=== PATIENT | male | born 1950 | race Two or more races ===

== ENCOUNTER 2017-02-23 16:13 | Outpatient (CLI) | payer BC, MEDICARE | END 2017-02-23 23:59 | disposition home or self-care (01) | LOC: RAD 16:13 | PROVIDERS: ATTEND Podiatrist Foot & Ankle Surgery | DX: M19.071 Primary osteoarthritis, right ankle and foot (principal); M79.89 Other specified soft tissue disorders; L97.519 Non-pressure chronic ulcer of other part of right foot with unspecified severity | CPT/HCPCS: 73630-TC ==

== ENCOUNTER 2017-02-27 08:55 | Outpatient (CLI) | payer BC, MEDICARE | END 2017-02-27 23:59 | disposition home or self-care (01) | LOC: WOU 08:55 | PROVIDERS: ATTEND Podiatrist Foot & Ankle Surgery | DX: L97.511 Non-pressure chronic ulcer of other part of right foot limited to breakdown of skin (principal); G62.9 Polyneuropathy, unspecified; M10.9 Gout, unspecified; M19.90 Unspecified osteoarthritis, unspecified site; Z83.3 Family history of diabetes mellitus; Z82.49 Family history of ischemic heart disease and other diseases of the circulatory system; I10 Essential (primary) hypertension | CPT/HCPCS: 11042; A6402 ×2; 11100 ==

== ENCOUNTER → 2017-03-06 | Outpatient (CLI) | payer BC, MEDICARE | LOC: WOU 08:45 | PROVIDERS: ATTEND Podiatrist Foot & Ankle Surgery | DX: L97.411 Non-pressure chronic ulcer of right heel and midfoot limited to breakdown of skin (principal); M20.41 Other hammer toe(s) (acquired), right foot; M19.90 Unspecified osteoarthritis, unspecified site; R60.0 Localized edema; L03.115 Cellulitis of right lower limb; M10.9 Gout, unspecified; Z79.899 Other long term (current) drug therapy; G62.9 Polyneuropathy, unspecified | CPT/HCPCS: 11042; A6402 ==

== ENCOUNTER 2017-03-13 13:23 | Outpatient (CLI) | payer BC, MEDICARE | END 2017-03-13 23:59 | disposition home or self-care (01) | LOC: WOU 13:23 | PROVIDERS: ATTEND Podiatrist Foot & Ankle Surgery | DX: L97.411 Non-pressure chronic ulcer of right heel and midfoot limited to breakdown of skin (principal); G62.9 Polyneuropathy, unspecified; M20.41 Other hammer toe(s) (acquired), right foot; M19.90 Unspecified osteoarthritis, unspecified site; R60.0 Localized edema; L03.115 Cellulitis of right lower limb; M10.9 Gout, unspecified; Z79.899 Other long term (current) drug therapy | CPT/HCPCS: 11042; A6402 ==

== ENCOUNTER 2017-03-27 08:20 | Outpatient (CLI) | payer BC, MEDICARE | END 2017-03-27 23:59 | disposition home or self-care (01) | LOC: WOU 08:20 | PROVIDERS: ATTEND Podiatrist Foot & Ankle Surgery | DX: G62.9 Polyneuropathy, unspecified (principal); L97.511 Non-pressure chronic ulcer of other part of right foot limited to breakdown of skin; S90.424A Blister (nonthermal), right lesser toe(s), initial encounter; X58.XXXA Exposure to other specified factors, initial encounter; Y92.89 Other specified places as the place of occurrence of the external cause; M20.41 Other hammer toe(s) (acquired), right foot; M19.90 Unspecified osteoarthritis, unspecified site; M10.9 Gout, unspecified; Z79.899 Other long term (current) drug therapy | CPT/HCPCS: 11042; A6402 ==

== ENCOUNTER 2017-04-04 10:08 | Outpatient (CLI) | payer BC, MEDICARE | END 2017-04-04 23:59 | disposition home or self-care (01) | LOC: WOU 10:08 | PROVIDERS: ATTEND Podiatrist Foot & Ankle Surgery | DX: G62.9 Polyneuropathy, unspecified (principal); L97.511 Non-pressure chronic ulcer of other part of right foot limited to breakdown of skin; L84 Corns and callosities | CPT/HCPCS: 11042; A6402 ==

== ENCOUNTER 2017-04-11 11:25 | Outpatient (CLI) | payer BC, MEDICARE | END 2017-04-11 23:59 | disposition home or self-care (01) | LOC: WOU 11:25 | PROVIDERS: ATTEND Podiatrist Foot & Ankle Surgery | DX: G60.9 Hereditary and idiopathic neuropathy, unspecified (principal); L97.511 Non-pressure chronic ulcer of other part of right foot limited to breakdown of skin; L84 Corns and callosities | CPT/HCPCS: 11042; A6402 ==

== ENCOUNTER 2017-04-18 08:47 | Outpatient (CLI) | payer BC, MEDICARE | END 2017-04-18 23:59 | disposition home or self-care (01) | LOC: WOU 08:47 | PROVIDERS: ATTEND Podiatrist Foot & Ankle Surgery | DX: G62.9 Polyneuropathy, unspecified (principal); L97.511 Non-pressure chronic ulcer of other part of right foot limited to breakdown of skin | CPT/HCPCS: 11042; A6402 ==

== ENCOUNTER 2017-04-25 08:44 | Outpatient (CLI) | payer BC, MEDICARE | END 2017-04-25 23:59 | disposition home or self-care (01) | LOC: WOU 08:44 | PROVIDERS: ATTEND Podiatrist Foot & Ankle Surgery | DX: G62.9 Polyneuropathy, unspecified (principal); L97.511 Non-pressure chronic ulcer of other part of right foot limited to breakdown of skin; L84 Corns and callosities | CPT/HCPCS: 11042; A6402 ==

== ENCOUNTER 2017-05-02 08:08 | Outpatient (CLI) | payer BC, MEDICARE | END 2017-05-02 23:59 | disposition home or self-care (01) | LOC: WOU 08:08 | PROVIDERS: ATTEND Podiatrist Foot & Ankle Surgery | DX: G62.9 Polyneuropathy, unspecified (principal); L97.511 Non-pressure chronic ulcer of other part of right foot limited to breakdown of skin; L84 Corns and callosities; Q66.7 Congenital pes cavus | CPT/HCPCS: 11042; A6402 ==

== ENCOUNTER 2017-05-09 08:00 | Outpatient (CLI) | payer BC, MEDICARE | END 2017-05-09 23:59 | disposition home or self-care (01) | LOC: WOU 08:00 | PROVIDERS: ATTEND Podiatrist Foot & Ankle Surgery | DX: L97.511 Non-pressure chronic ulcer of other part of right foot limited to breakdown of skin (principal); G62.9 Polyneuropathy, unspecified; L84 Corns and callosities | CPT/HCPCS: 11042; A6402 ==

== ENCOUNTER 2017-05-16 08:30 | Outpatient (CLI) | payer BC, MEDICARE | END 2017-05-16 23:59 | disposition home or self-care (01) | LOC: WOU 08:30 | PROVIDERS: ATTEND Podiatrist Foot & Ankle Surgery | DX: G60.9 Hereditary and idiopathic neuropathy, unspecified (principal); L97.511 Non-pressure chronic ulcer of other part of right foot limited to breakdown of skin | CPT/HCPCS: 11042; A6402 ==